=== PATIENT | male | born 1975 | race Two or more races ===

== ENCOUNTER 2021-03-14 09:45 | Inpatient (IN) | payer OTHER ==
[~2021-03-14] VITALS: Ht 165.1 cm; Wt 74.4 kg
[2021-03-24] MEDS ORDERED: HYOSCYAMINE0.125 M1 SL (12:25)
[2021-03-24] MEDS ORDERED: OXYC1TAB9 PO (12:25)
[2021-03-24] MEDS ORDERED: INTESTINEX680 M1 PO (12:26)
== END 2021-03-24 16:32 | disposition home or self-care (01) | DRG 330 ==
LOC: ADM 09:45 → EDSTATUS 09:45 → O/R 03-20 06:05 → SURH 03-20 08:30 → SURG 03-20 14:38
PROVIDERS: ADMIT Surgery; ATTEND Surgery
PROC: 0DTP4ZZ Resection of Rectum, Percutaneous Endoscopic Approach (ICD-10-PCS; 2021-03-20)
PROC: 0DTN4ZZ Resection of Sigmoid Colon, Percutaneous Endoscopic Approach (ICD-10-PCS; principal; 2021-03-20 08:30)
DX: K57.20 Diverticulitis of large intestine with perforation and abscess without bleeding (principal); N32.1 Vesicointestinal fistula; R10.32 Left lower quadrant pain; R19.4 Change in bowel habit

== ENCOUNTER → 2021-03-18 | Day surgery (SDC) | payer OTHER ==
[~2021-03-18] MED LIST: HYOSCYAMINE0.125 M1 SL; INTESTINEX680 M1 PO; OXYC1TAB9 PO
== END | disposition home or self-care (01) ==
LOC: EDUNIT# 03-14 09:45 → EDSTATUS 03-14 09:45 → AMB-ENDOS 09:45
PROVIDERS: ATTEND Surgery
DX: K62.89 Other specified diseases of anus and rectum (principal)